=== PATIENT | male | born 1980 | race African-American/Black ===

== ENCOUNTER 2017-06-21 10:46 | Emergency (ER) | payer OTHER ==
[~2017-06-21] VITALS: Ht 172.7 cm; Wt 80.9 kg
[2017-06-21] MEDS ORDERED: NAPROSYN500 MG PO (12:18)
[2017-06-21 12:36] VITALS: BP 120/79
== END 2017-06-21 12:36 | disposition home or self-care (01) ==
LOC: EME 10:46
DX: S63.501A Unspecified sprain of right wrist, initial encounter (principal); Z87.19 Personal history of other diseases of the digestive system; W20.8XXA Other cause of strike by thrown, projected or falling object, initial encounter; Y99.0 Civilian activity done for income or pay
CPT/HCPCS: 73110; 99281; 99284

== ENCOUNTER 2017-06-25 13:50 | Emergency (ER) | payer OTHER ==
[~2017-06-25] VITALS: Ht 172.7 cm; Wt 79.3 kg
[~2017-06-25 13:50] MED LIST: NAPROSYN500 MG PO
[2017-06-25 14:13] VITALS: BP 151/90
[2017-06-25 16:20] LABS: ALBUMIN 4.6 g/dL (3.2-4.8)
[2017-06-25 16:21] LABS: CHLORIDE 105 mEq/L (99-109); POTASSIUM 4.3 mEq/L (3.7-5.4); SODIUM 143 mEq/L (136-147)
[2017-06-25 16:23] LABS: GLUCOSE 80 mg/dL (70-99); TOTAL PROTEIN 7.8 g/dL (6.4-8.3)
[2017-06-25 16:24] LABS: HEMATOCRIT 43.9 % (38.0-50.0); HEMOGLOBIN 13.6 G/DL (12.5-16.6); MCH 20.3 PG (29.0-34.0); MCV 65.5 FL (86-99); PLATELET COUNT 246 K/uL (156-360); RBC DIS.WIDTH-CV 17.1 % (11.8-14.6); RBC DIS.WIDTH-SD 34.1 % (39-53); WHITE BLOOD COUNT 8.8 K/uL (4.1-10.2)
[2017-06-25 16:25] LABS: TOTAL BILIRUBIN 0.5 mg/dL (0.0-1.0)
[2017-06-25 16:26] LABS: ALKALINE PHOSPHATASE 95 IU/L (3-129)
[2017-06-25 16:27] LABS: CREATININE 0.8 mg/dL (0.6-1.3); GFR ESTIMATE (CALCULATED) > 59 mL/min/ (58.99-99999)
[2017-06-25 16:28] LABS: AST (GOT) 22 IU/L (2-34); UREA NITROGEN (BUN) 14 mg/dL (9-23)
[2017-06-25 16:29] LABS: ALT (GPT) 31 IU/L (3-49)
[2017-06-25 16:30] LABS: LIPASE 51 U/L (1.0-51.0)
[2017-06-25] MEDS ORDERED: ZANTAC150 MG PO (17:16)
== END 2017-06-25 17:26 | disposition home or self-care (01) ==
LOC: EME 13:50
PROVIDERS: Physician Assistant
DX: K29.70 Gastritis, unspecified, without bleeding (principal); T39.395A Adverse effect of other nonsteroidal anti-inflammatory drugs [NSAID], initial encounter
CPT/HCPCS: 80053; 83690; 85027; 99281; 99283